=== PATIENT | female | born 1990 | race Caucasian/White ===

== ENCOUNTER 2017-07-01 16:12 | Inpatient (IN) ==
[2017-07-01] MEDS ORDERED: LIDOCAINE HCL 2 % 10 ML JELLY URO-JECT TOPICAL PRN (16:38)
[2017-07-01] MEDS ORDERED: LIDOCAINE W/ SODIUM BICARB 0.5 ML SYR SUBD PRN ×2 (16:38→20:50)
[2017-07-01] MEDS ORDERED: FAMOTIDINE 20 MG/2 ML VIAL IVP ONE ×2 (16:38→17:32)
[2017-07-01] MEDS ORDERED: Metoclopramide Inj 10 MG/2 ML VIAL IV ONE (16:38)
[2017-07-01] MEDS ORDERED: CefOXitin Inj 2 GM in Sodium Chloride 0.9% 100 ML IV ONE (16:38)
[2017-07-01] MEDS ORDERED: CITRIC ACID/SODIUM CITRATE 30 ML CUP PO ONE ×2 (16:38→17:31)
[2017-07-01] MEDS ORDERED: Lactated Ringers 1,000 ML PRIMARY IV ONE ×3 (16:38→20:29)
[2017-07-01] MEDS ORDERED: Lactated Ringers 1,000 ML PRIMARY IV SCH (16:45)
[2017-07-01] MEDS ORDERED: Oxytocin 20 Units + LR 20 UNIT/1,000 ML BAG IV SCH ×2 (16:45→21:30)
[2017-07-01 17:12] LABS: Hematocrit [HCT] 33.9 % (37.0-47.0); Hemoglobin [HGB] 11.2 g/dL (12.0-16.0); MEAN CORPUSCULAR HEMOGLOBIN 29.3 PG (27-31); MEAN CORPUSCULAR VOLUME 88.7 FL (81-99); MEAN PLATELET VOLUME 10.8 FL (7.4-12.2); RED BLOOD COUNT 3.82 10^6/uL (4.20-5.40)
[2017-07-01] MEDS ORDERED: fentaNYL Inj 100 MCG/2 ML VIAL ONE (17:13)
[2017-07-01] MEDS ORDERED: fentaNYL Inj 100 MCG/2 ML VIAL IVP ONE (17:16)
[2017-07-01] MEDS ORDERED: Metoclopramide Inj 10 MG/2 ML VIAL ONE (17:31)
--- NOTE | 2017-07-01 17:36 | OB.PROGRES ---
Interval History: The patient is a 27-year-old at 36-6/7 weeks with a history of 3 prior sections the first for nonreassuring status in the next 2 for repeat C-sections. The patient states that she has been having significant pain for 48 hours. No bleeding. Last night she just laid on the couch in significant pain. The patient did not call labor and delivery. Positive movement, no leak of fluid. The patient then presented late this afternoon for pain times greater than 48 hours. The patient's OB history is complicated by the fact that she transferred her care from [facility]. The patient states that she had an ultrasound at an urgent care clinic and she thought that she was 20 weeks gestation and this was in January 2017. The patient then had a formal ultrasound here at [facility] 03/08/2017 and the ultrasound showed that she had an ENOC of 07/23/2017. There is even mention of EFW to be the 2nd percentile or less with the dates that were given and so therefore the SENIOR AIR DIRECTOR that was following this patient changed her due date 2017. The patient was breast-feeding and did not have regular menses. The patient's last section was February 2016. The patient states that none of her sections were complicated. The patient also would like a tubal ligation. The patient states that she would like no more children. One of her children in MVA and another child is not under her care. Past medical history-history of 3 C-sections but otherwise no asthma, no diabetes, no hypertension. The patient does have a history of depression as a teenager but did not have depression according to the patient. Past surgical history 3. Allergies to Prozac Tobacco-quarter pack per day according to the patient's mom. The patient was on the phone when I asked her this. No alcohol during and no drugs during . Objective - Cervical Exam Cervical Exam: 2-3/-1 cephalic [place]: Irregular contractions Heart Rate Interpretation Category: Category I - Labs CBC and BMP: 07/01/17 16:49 - Vital Signs Last Taken Vital Signs: Vital Signs - Last Taken Temperature 98.9 F 07/01/17 16:16 Respiratory Rate 20 07/01/17 16:16 Blood Pressure 113/78 07/01/17 16:16 Pulse Ox 96 07/01/17 16:16 - Additional Details Additional Details: Lungs clear to auscultation Heart regular rate and rhythm Abdomen is gravid, soft, positive tender right and left lower quadrant without guarding or rebound. By Dameon's, baby is in the cephalic presentation. Reflexes 2+ bilaterally patellar tendon Trace edema bilaterally lower extremity, if that. No Homans. Assessment and Plan - Assessment / Plan Additional Assessment/Plan Details: Assessment: IUP 36-6/7 weeks by an ultrasound 03/08/2017. The patient states that she had an ultrasound in January 2017 that put her at 20 weeks at that time. Dates are sent by Dr. Nam with the ENOC of 07/23/2017. The patient was scheduled for repeat at 39-1/2 weeks gestation on . The patient also has satisfied parity and desires no more children and would like a bilateral tubal ligation. Group B strep negative. The patient presented today with abdominal and pelvic pain for 2 days that has been intermittent but last night it was constant. The patient's cervix is 2-3 cm dilated. The patient's cervix has not been checked this but the patient states that historically her cervix did not dilate. The baby is in the cephalic presentation. The placenta is anterior. The above information, I am saying that the patient is in labor at 36-6/ 7 weeks with a history of 3 C-sections and a repeat section will be completed today. Patient expressed understanding. Plan: The patient and I spoke, along with her mother, about the risk, benefits, alternatives and indication of a repeat section. We discussed the risk of infection, bleeding, pain, postoperative hemorrhage, blood transfusion with associated risks, the risk of a placenta accreta since the patient's placenta is anterior and the patient has had 3 sections. If this were to occur, the patient may need an urgent section for continued hemorrhage. A blood transfusion consent form has been signed. The risk of damage to bowel, bladder, nerve, vessel, nicking the baby, blood clots to the legs or lungs, serious infection requiring transferring the patient for further care and surgeries and the low possibility of maternal secondary to infection or hemorrhage or damage to bowel or any other reason. We also discussed a possible scenario where the baby would be pre-sure and have pulmonary issues or other issues necessitating transfer of the baby to intensive care unit in [place], [place]. The patient would stay here until she was healed and then may go to [place] to be with her baby. The baby would be transferred separately by the NICU transport team. The patient expressed understanding with this. The consent forms have been signed by her primary SENIOR AIR DIRECTOR-Dr. Nam beforehand. The consent forms for the section and a section as well as the blood transfusion consent form. I initialed the consent forms that were signed previously. I asked the patient and her mother if there are any questions. The patient stated that currently she did not have any. The operating crew as well as anesthesia is involved with an orthopedic case currently and we will do the repeat section when the operating room crew is available. The patient was alerted to this fact. Patient expressed understanding.
--- NOTE | 2017-07-01 18:27 | OB.OP.NOTE ---
Operative Report Surgeon: Solo Electrical Tester: Cas Ruvalcaba MD Anesthesia Type: Regional (Spinal with Duramorph) Anesthesia Provider: Brandon Davidson CRNA Surgery Date: 07/01/17 Preoperative Diagnosis: IUP 36-6/7 weeks, history of 3 sections, anterior placenta with no ultrasound evidence of placenta accreta, patient with satisfied parity and desires tubal ligation. Patient with intermittent contractions and labor with cervix 2-3/60/-1 cephalic. Patient desires Pfannenstiel scar to be excised Postoperative Diagnosis: Same. Right paratubal cyst Procedure: Repeat section. Bilateral tubal ligation using Filshie clips. Removal of Pfannenstiel scar. Excision of right paratubal cyst Estimated Blood Loss (mL): 600 Fluids: 1200 mL in operating room of LR. 3000 mL preoperatively and then during the surgery. Urine was clear yellow about 100 to 125 cc- patient voided right before surgery or going back to the operating room Complications: None apparent Findings at Surgery: Male infant with Apgars of 8 and 9 with weight 5 lbs. 13 oz. ABG showed a pH is 7.382, PCO2 34, HCO3 20.2, base excess of -5 Ovaries appeared normal bilaterally. Filshie clips applied bilaterally to fallopian tubes about 3 cm from cornua Right paratubal cyst was excised by tying the cyst off with 3-0 Vicryl suture and then excising the cyst. The placenta, abdominal scar and right paratubal cyst were sent to pathology Indications for the Procedure: Please see my H&P The patient is a 27-year-old at 3 6-6/7 weeks by an ultrasound on 03/08 that gave an ENOC of 07/23/2017. Heart to this, the patient was in [place] and states that she had an ultrasound in January 2017 which showed her to be 20 weeks at that time. The patient presented with 48 hours of abdominal and pelvic pain and her cervix was 2-3 cm/60/-1 cephalic. The patient states that her cervix has not been checked this but historically her cervix did not dilate with her last 2 pregnancies. Secondary to the anterior placenta, and a delay secondary to the operating room team being involved with an orthopedic case, an abdominal ultrasound was completed to inspect the placenta prior to the surgery. The ultrasound did not show specific evidence of a placenta accreta or increta or percreta. Of course , this does not guarantee that there is not a placenta accreta it is good that the ultrasound did not show this. With the patient being 2-3 cm dilated and having pain for the past 48 hours, I am making a diagnosis of labor. The patient and I discussed the risk, benefits, alternatives and indication of a repeat section and tubal ligation. Consent forms were signed previously. I did sign the consent forms also. We'll proceed to the repeat section and tubal ligation Description of Procedure: The patient was brought to the operating room after the risks, benefits, alternatives and indication of the repeat section and tubal ligation were discussed with the patient. Patient expressed understanding. The patient underwent spinal anesthesia with Duramorph and uncomplicated fashion. The patient was prepped and a Louis catheter was placed. The patient was prepped and draped sterilely. A timeout was completed and the patient and procedures were identified. A skin incision was made over the old Pfannenstiel skin incision. The old Pfannenstiel scar was excised. The subcutaneous tissue was then incised to the fascia using the Bovie. The fascia was nicked in the midline. The actual incision was extended elevating the fascia off of the rectus muscles using the Yankauer suction as a retractor. Coy clamps were placed on the fascia superiorly on either side of the midline and then the fascia was dissected off the rectus muscles both bluntly and with the Bovie and with a knife blade. Doreen clamps were then placed on the fascia inferiorly on either side of the midline and then the fascia was dissected off the rectus muscles both bluntly and with the Bovie. There was a small opening in the peritoneum and I was able to place my digit in and then gently used the Bovie to open up the peritoneal incision keeping in mind where the bladder and bowel were. I was unable to stretch the peritoneum and make a larger opening. Her were some adhesions between the anterior abdominal wall and the uterine fundus. These were taken down. There are also some bladder adhesions and a bladder flap was created. The Antonio retractor was then placed. A low transverse uterine incision was then made and I worked my way down to the membranes and the membranes were ruptured and was clear fluid. The uterine incision was then stretched. I then placed my hand intrauterine and delivered the baby's head. The mouth and nose were bulb suctioned. There was a nuchal cord 1 which was reduced. The was then delivered through the uterine incision. Delayed cord clamping was allowed for for greater than 30 seconds. The cord was then clamped and cut and the baby was handed off to the waiting nurses and senior shipping clerk. A section of cord was obtained for cord gases. Cord blood was then obtained. The placenta was then extracted by applying tension to the umbilical cord and then trailing membranes were gently removed using a ring forcep. A lap sponge was then placed around the fundus of the uterus and the uterus was cleared of any clot and debris 3 different times. There was no remaining placenta. There was good hemostasis. A couple areas on the right side of the incision were bleeding and a ring forcep was placed over this. Starting on the left side of the uterine incision 0 Vicryl suture in a running locking stitch was used to close the uterine incision. A second imbricating stitch was used. One [id number] suture in the center of the uterine incision was placed to allow for excellent hemostasis. Attention was then turned to the fallopian tubes and a Filshie clip was placed on the right fallopian tube about 3 cm from the cornea and the same was done on the left fallopian tube. There was good hemostasis. There was a paratubal cyst on the distal right fallopian tube and I placed a tie around the cyst and then excise the cyst. There was excellent hemostasis. Both ovaries were examined and appeared normal. Posterior to the uterus was irrigated and suctioned. The uterus was then placed back into the abdomen. Care was taken to place the ovaries and fallopian tubes back into the abdomen without torsion and the area of the paratubal cyst excision was hemostatic and the suture tie was intact. No bleeding. The right and left gutter was irrigated and suctioned. The uterine incision was examined again and there was good hemostasis. The ovaries and tubes were examined again and there was good hemostasis. Filshie clips were intact. There were some omental adhesions superiorly and these were taken down and then the peritoneum was closed using 3-0 Vicryl suture in a running fashion. The fascia was then irrigated and there was good hemostasis. Looped 0 PDS suture was then used and I started on the left angle of the fascia on the patient's left side and closed the fascia in a running fashion and then tied it on the right side in the usual fashion. The subcutaneous tissue was then irrigated and a few areas were bovied and then a layer of 3-0 Vicryl suture was used to close the subcutaneous tissue. The skin was then closed with 3-0 Stratafix suture in a subcuticular fashion. Starting in the midline and working out to the right and left side bilaterally. A few areas of the skin were open I used 4-0 Monocryl suture-interrupted sutures 3 just to close small areas of the skin. Steri-Strips were then used to reapproximate the skin even more. Silverlon dressing and then ABD pad and paper tape. My gloves were changed and then I expressed the uterus of any clot and debris and about 30 or 40 mL of dark blood with some clot was obtained. No active bleeding. The patient was then brought to the PACU in stable condition. The patient will be observed in the PACU and then brought to her room. The patient and I discussed that everything appeared to go well but we would still observe for bleeding and for infection. The patient expressed understanding. The male weighed 5 lbs. 13 oz. and had Apgars of 8 and 9. ABG showed a pH of 7.382, PCO2 of 34, HCO3 of 20, base excess of -5. Plan: The patient and baby would recover in their room
--- NOTE | 2017-07-01 18:42 | OB.PROGRES ---
Objective - Labs CBC and BMP: 07/01/17 16:49 - Vital Signs Last Taken Vital Signs: Vital Signs - Last Taken Temperature 98.9 F 07/01/17 17:20 Respiratory Rate 20 07/01/17 17:20 Blood Pressure 113/78 07/01/17 17:20 Pulse Ox 96 07/01/17 17:20 Assessment and Plan - Assessment / Plan Additional Assessment/Plan Details: Although I do not have a formal report, the chief client officer stated that it did not appear as though there was a placenta accreta with the anterior placenta. Color Doppler was used. I informed the patient that this did not 100% determine that there was not a placenta accreta but it was good that there did not appear to be a placenta accreta or more. We will proceed with the repeat section.
[2017-07-01] MEDS ORDERED: MORPHINE SULFATE/PF 10 MG/10 ML AMPULE ONE (18:44)
[2017-07-01] MEDS ORDERED: ePHEDrine Inj 50 MG/ML AMP ONE (19:20)
[2017-07-01] MEDS ORDERED: ONDANSETRON 4 MG/2 ML VIAL ONE (19:31)
--- NOTE | 2017-07-01 20:06 | DI ---
EXAM: US Uterus, Limited CLINICAL HISTORY: X 3 w/ Ant placenta; r/o accreta TECHNIQUE: Real-time ultrasound of the maternal uterus (limited) with image documentation. COMPARISON: 03/08/17 FINDINGS: Fetus: Single live intrauterine in vertex presentation. Heart rate: hear rate measures 144 beats per minute. Placenta: Anterior placenta. No obvious uterine wall invasion. IMPRESSION: 1. Single live intrauterine in vertex presentation. 2. Anterior placenta. No obvious uterine wall invasion.
[2017-07-01] MEDS ORDERED: KETOROLAC 30 MG/1 ML VIAL ONE (20:10)
[2017-07-01] MEDS ORDERED: OXYTOCIN 10 UNIT/1 ML ONE (20:29)
[2017-07-01] MEDS ORDERED: Nalbuphine Inj 20 MG/ML Ampule ONE ×2 (20:35→21:09)
--- NOTE | 2017-07-01 20:49 | CRNA.PROGR ---
Anesthesia Time - - Start date: 07/01/17 End date: 07/01/17 - Procedure/Recovery Time Anesthesia : Time In: 19:11 Anesthesia : Time Out: 20:53 Anesthesia : Total Time: 102 - Total Anesthesia Time Total Anesthesia Time (minutes): 102 - Other Weight: 76.022 kg Height: 5 ft 4 in Body Mass Index (BMI): 28.8 Physical Status: P2 Anesthesia Type: Spinal Block Obstetrics: C/S anesthesia only
[2017-07-01] MEDS ORDERED: Prochlorperazine Edisylate Inj 10mg/2ml vial IVP PRN (20:50)
[2017-07-01] MEDS ORDERED: HYDROmorphone 2 MG/1 ML IVP PRN (20:50)
--- NOTE | 2017-07-01 20:50 | CRNA.PROGR ---
Anesthesia Recovery Phase I - Post Anesthesia Evaluation Patient's Condition on Arrival in Phase I: Stable Patient's Condition on Arrival in Phase II: Stable Pain Level: 0
[2017-07-01] MEDS ORDERED: Nalbuphine Inj 20 MG/ML Ampule IVP PRN ×2 (21:01→21:30)
[2017-07-01] MEDS ORDERED: Naloxone Inj 0.01 MG, Sodium Chloride 0.9% vial 1 ML IVP PRN ×2 (21:30)
[2017-07-01] MEDS ORDERED: D5-LR 1,000 ML PRIMARY IV SCH (21:30)
[2017-07-01] MEDS ORDERED: DIPH,PERTUSS,TET(ADACEL) VAC/PF 0.5 ML (Tdap) IM ONE (21:30)
[2017-07-01] MEDS ORDERED: FAMOTIDINE 20 MG/2 ML VIAL IVP PRN (21:30)
[2017-07-01] MEDS ORDERED: ONDANSETRON 4 MG/2 ML VIAL IVP PRN (21:30)
[2017-07-01] MEDS ORDERED: CALCIUM CARBONATE 500 MG (TUMS) CHEWABLE TABLET PO PRN (21:30)
[2017-07-01] MEDS ORDERED: diphenhydrAMINE 25 MG CAPSULE PO PRN (21:30)
[2017-07-01] MEDS ORDERED: LANOLIN HPA 40 GM TUBE TOPICAL PRN (21:30)
[2017-07-01] MEDS ORDERED: diphenhydrAMINE 50 MG/1 ML VIAL IV PRN (21:30)
[2017-07-01] MEDS: KETOROLAC 15 MG/1 ML VIAL IVP SCH (22:00)
[2017-07-01] MEDS: oxyCODONE-ACETAMINOPHEN 5-325 TAB PO PRN (23:14)
--- NOTE | 2017-07-01 23:38 | CRNA.PROCE ---
Central Neuraxis Block Placemt - - Type of Block: Subarachnoid Reason for Block: Surgical Moniters Used During Block: EKG, SPO2, NIBP Positioning: Sitting Skin Prep Used: ChloroPrep Draped: No Skin Infiltration - Enter Amount Used in Comment Field: 1% Xylocaine (mL): Yes ( skin wheal) Spinal Needle Used: 25 Joce 80 mm Local Anesthetic - Enter Amount Used in Comment Field: 0.75 % Bupivacaine with Dextrose (ml): Yes (2ml) Additive Used - Enter Amount Used in Comment Field: Preservative Free Morphine ( mg): Yes (.3mg) Bioclusive Dressing Applied: No Anesthesia Time - Other Weight: 76.022 kg Height: 5 ft 4 in Body Mass Index (BMI): 28.8
[2017-07-02] MEDS: KETOROLAC 15 MG/1 ML VIAL IVP SCH ×4 (03:35→21:05)
[2017-07-02] MEDS: oxyCODONE-ACETAMINOPHEN 5-325 TAB PO PRN ×4 (03:40→19:10)
[2017-07-02 05:13] LABS: Hematocrit [HCT] 29.6 % (37.0-47.0); Hemoglobin [HGB] 9.7 g/dL (12.0-16.0); MEAN CORPUSCULAR HEMOGLOBIN 29.7 PG (27-31); MEAN CORPUSCULAR HGB CONC 32.8 g/dL (33-37); MEAN CORPUSCULAR VOLUME 90.5 FL (81-99); MEAN PLATELET VOLUME 10.8 FL (7.4-12.2); RED BLOOD COUNT 3.27 10^6/uL (4.20-5.40)
[2017-07-02] MEDS: Prenatal Multivitamin Tab 1 TAB TAB PO SCH (08:51)
[2017-07-02] MEDS: Senna/Docusate Tab 1 TAB TAB PO SCH ×2 (08:51→21:05)
--- NOTE | 2017-07-02 13:53 | OB.PROGRES ---
Subjective Post Op Day: 1 Pain Management: IV Toradol Louis Catheter: Yes Flatus: Yes Diet: Regular [place] Feeding Method: / Bottle Ambulating: No Concerns / Additional Information: The patient has not really walked around the room. However, the patient would like her Louis catheter removed and the nurse will do so after the patient is up. The patient states that she is passing flatus. She is mainly breast-feeding but supplementing with bottle. Patient states that she is feeling okay. She tolerated the regular diet okay. Objective - General General Appearance: POSITIVE: No Acute Distress, Cooperative - Cardiovacular Cardiovascular Exam: POSITIVE: RRR Extremities: Negative Riccardo's - Bilaterally - Respiratory Respiratory Exam: POSITIVE: Clear to Auscultation - Bilaterally - Abdomen Bowel Sounds: Present Abdominal Wound Assessment: Silverlone Dressing (With ABD pad) - Fundus/Lochia/Perineum Uterus Consistency: Firm Assesstment / Plan Assessment / Plan: Assessment: Post operative day #1 status post repeat section, bilateral tubal ligation using Filshie clips since the patient is only 27 years old, scar revision, and lysis of adhesions who has a postop H&H of 9.7 and 29.6. Patient's pulse is in the 80s. Patient's blood pressure is 100 over 60s and her blood pressure was similar during her OB visits with Dr. Nam. The patient is doing well overall. Plan: Louis catheter will be discontinued. Ambulate in room and at least one time in the carcamo today. Ambulate at least 4 times in the carcamo tomorrow as well as the room Check H&H tomorrow morning since this morning's was only 8-10 hours postop. Anticipate discharge from hospital on postoperative #3 since the patient's surgery was last evening. Patient expressed understanding. Continue to observe vital signs
--- NOTE | 2017-07-02 14:22 | CRNA.PROGR ---
Anesthesia Note - Progress Notes Anesthesia Progress Note: Post OP Anesthesia Note Pt is lying in bed nursing her alert and oriented. She denies any residual problems from the SAB, and states that it has completely resolved. She has not been up ambulating yet but states thes nurses are going to be getting her up soon and removing the catheter. She is tolerating a regular diet. Current VSS. Vital Signs - Last Taken Temperature 98.4 F 07/02/17 09:00 Pulse Rate 79 07/02/17 09:00 Respiratory Rate 20 07/02/17 09:00 Blood Pressure 105/76 07/02/17 09:00 Pulse Ox 98 07/02/17 09:00
--- NOTE | 2017-07-02 19:49 | OB.PROGRES ---
Subjective Post Op Day: 1 Pain Management: IV Toradol Louis Catheter: No Flatus: Yes Diet: Regular [place] Feeding Method: / Bottle Ambulating: Yes Concerns / Additional Information: Louis catheter is out. When she ambulates, she has some pain on her right and left side. Objective - General General Appearance: POSITIVE: No Acute Distress, Cooperative - Abdomen Abdominal Wound Assessment: Silverlone Dressing (Abdomen is soft without guarding or rebound. Appropriately tender.) Assesstment / Plan Assessment / Plan: Assessment: Postoperative day #1 status post repeat section, scar revision, bilateral tubal ligation using Filshie clips, and lysis of adhesions. The patient does have some pain on her right and left side. The patient has been taking oxycodone with Tylenol or Percocet every 4 hours. The patient is not in acute distress. Plan: The patient and I discussed the fascial incision and closure of the fascia with a loop of suture on the left side and then on the right side a knot. The patient's pain could be secondary to this. Additionally, the patient has had a tubal ligation and the Filshie clips could be causing some discomfort. The patient's vital signs are normal with pulse in the 70s and 80s. The patient's abdomen is soft without guarding or rebound. I will discontinue the patient's oxycodone/Tylenol 5/325 and prescribed oxycodone with Tylenol 7.5/325 one to 2 by mouth every 4-6 hours when necessary pain. The nurse stated that she would try to give one 7.5 milligram oxycodone tablet every 4 hours to determine if this helps. I will reassess the patient tomorrow or sooner as needed.
[2017-07-02] MEDS: oxyCODONE/APAP 7.5/325 Tab 1 TAB TAB PO PRN (22:52)
[2017-07-03] MEDS: oxyCODONE/APAP 7.5/325 Tab 1 TAB TAB PO PRN ×4 (03:30→19:17)
[2017-07-03 05:19] LABS: BASOPHILS # (AUTO) 0.02 10*3/UL; BASOPHILS % (AUTO) 0.2 % (0-1); EOSINOPHILS # (AUTO) 0.25 10*3/UL; EOSINOPHILS % (AUTO) 2.6 % (0-8); Hematocrit [HCT] 29.7 % (37.0-47.0); Hemoglobin [HGB] 9.6 g/dL (12.0-16.0); LYMPHOCYTES # (AUTO) 2.77 10*3/uL; MEAN CORPUSCULAR HEMOGLOBIN 29.3 PG (27-31); MEAN CORPUSCULAR HGB CONC 32.3 g/dL (33-37); MEAN CORPUSCULAR VOLUME 90.5 FL (81-99); MONOCYTES % (AUTO) 8.4 % (5-15); NEUTROPHILS # (AUTO) 5.65 10*3/UL; NEUTROPHILS % (AUTO) 59.5 % (50-80); PLATELET MORPHOLOGY COMMENT NORMAL MORPHOLOGY (NORM); RBC MORPHOLOGY COMMENT NORMAL MORPHOLOGY (NORM); RED BLOOD COUNT 3.28 10^6/uL (4.20-5.40); WBC MORPHOLOGY COMMENT NORMAL MORPHOLOGY (NORM)
[2017-07-03] MEDS: IBUPROFEN 800 MG TABLET PO PRN ×2 (07:24→15:26)
[2017-07-03] MEDS: Senna/Docusate Tab 1 TAB TAB PO SCH ×2 (08:41→22:05)
[2017-07-03] MEDS: Prenatal Multivitamin Tab 1 TAB TAB PO SCH (08:41)
--- NOTE | 2017-07-03 11:20 | OB.PROGRES ---
Subjective Post Op Day: 2 Pain Management: PO Louis Catheter: No Flatus: Yes Diet: Regular Feeding Method: / Bottle Ambulating: Yes Concerns / Additional Information: The patient states that her pain is improved today. The patient has been ambulating in her room. She is feeling better. Objective - General General Appearance: POSITIVE: No Acute Distress, Cooperative - Cardiovacular Cardiovascular Exam: POSITIVE: RRR Extremities: Negative Riccardo's - Bilaterally - Respiratory Respiratory Exam: POSITIVE: Rhonci (Right lower lung olivarez and left lung field Somewhat cleared with increased breathing.), Coarse Breath Sounds - Abdomen Bowel Sounds: Present (All 4 quadrants) Abdominal Wound Assessment: Silverlone Dressing Assesstment / Plan Assessment / Plan: Assessment: Postoperative day #2 status post repeat section, bilateral tubal ligation using Filshie clips, scar revision, and lysis of adhesions who is doing well. Post op H&H today is essentially the same as yesterday morning. The patient does have some rhonchi and is a smoker. Plan: Continue treatment plan Breathing treatment Ambulate I changed oxycodone every 6 hours when necessary pain Continue ibuprofen 3 times a day
[2017-07-03] MEDS ORDERED: ALBUTEROL SULFATE 2.5 MG/3 ML NEB PRN (11:22)
--- NOTE | 2017-07-03 11:41 | DCSUMMARY ---
Hospitalization Summary Admit Date: 07/01/17 Discharge Date: 07/04/17 Primary Diagnosis:: IUP 36-6/7 weeks with previous 3 Secondary Diagnosis:: labor with previous section Satisfied parity with desire for tubal ligation Patient desires scar revision Primary Surgery and Date: 07/01/2017. Repeat section. Bilateral tubal ligation using Filshie clips. Scar revision. Lysis of adhesions. Excision of right paratubal cyst Delivery Type: Hospital Course: The patient was admitted 07/01/2017 with labor with the patient's cervix being 2-3 cm/60/-1 and cephalic The patient underwent a repeat section, bilateral tubal ligation using Filshie clips, scar revision, lysis of adhesion and excision of a right paratubal cyst The patient did well postoperatively. Her postop H&H was essentially the same on postop day #1 and postop day #2. The patient was having some pain and I increased the patient's oxycodone from 5 mg to 7.5 mg/325 on the evening of postoperative day #1. On postoperative day #2 the patient was doing well. However, since the patient did not deliver to later in the evening, the patient will be discharged on postoperative day #3 On postoperative day #3, patient was doing well. Patient was discharged home. / Postop Complications: None apparent [place] Complications: None apparent Exam - Vitals Vital Signs: Vital Signs Temperature 97.8 F Temperature Source Oral Pulse Rate [Pulse Oximeter] 71 Pulse Rate 85 Respiratory Rate 15 Blood Pressure [Right Arm] 103/47 Blood Pressure 94/54 Pulse Ox 94 Oxygen Flow Rate 2 L by NC Oxygen Delivery Method Room Air Height 5 ft 4 in Weight 167 lb 9.6 oz
[2017-07-03] MEDS ORDERED: Lactated Ringers 2,000 ML PRIMARY IV ONE (16:09)
[2017-07-04] MEDS: oxyCODONE/APAP 7.5/325 Tab 1 TAB TAB PO PRN ×2 (03:51→11:00)
[2017-07-04] MEDS: IBUPROFEN 800 MG TABLET PO PRN (03:51)
[2017-07-04] MEDS: Prenatal Multivitamin Tab 1 TAB TAB PO SCH (08:44)
[2017-07-04] MEDS: Senna/Docusate Tab 1 TAB TAB PO SCH (08:44)
[2017-07-04 08:51] VITALS: BP 109/55; RESP 16; TEMP 97.8; O2SAT 98
--- NOTE | 2017-07-04 09:42 | OB.PROGRES ---
Subjective Post Op Day: 3 Pain Management: PO Louis Catheter: No Flatus: Yes Diet: Regular Feeding Method: / Bottle Ambulating: Yes Concerns / Additional Information: The patient states that she is feeling well except for tired. The patient has been taking her oxycodone every 6 hours. The patient states that her breathing is better. She received a couple breathing treatments. The patient is a smoker. The patient desires to go home. She has support at home. Objective - General General Appearance: POSITIVE: No Acute Distress, Cooperative - Cardiovacular Cardiovascular Exam: POSITIVE: RRR Extremities: Negative Riccardo's - Bilaterally - Respiratory Respiratory Exam: POSITIVE: Clear to Auscultation - Bilaterally, Rhonci (Few rhonchi initially but cleared with deep respiration) - Abdomen Abdominal Wound Assessment: Silverlone Dressing (Intact The patient had her initial dressing removed yesterday. Steri-Strips were dry and new Silverlon dressing was placed) - Fundus/Lochia/Perineum Other Exam Details: Abdomen is soft without guarding or rebound. Silverlon dressing in place Assesstment / Plan Assessment / Plan: Assessment: Postoperative day #3 status post repeat section, bilateral tubal ligation using Filshie clips since patient is only 27 years old, right paratubal cyst excision, lysis of adhesions, and scar revision. The patient's vital signs are normal. Patient feels well. Patient desires to go home. Exam is normal for postoperative day #3. Plan: Discharge home today Patient should follow-up Tuesday afternoon on 07/06/2017 with her primary OB/ [employer]-Dr. Nam for an incision check Usual postoperative instructions. Please see discharge instructions. Postoperative meds were previously prescribed and her mother picked them up.
== END 2017-07-04 14:00 | disposition home or self-care (01) | DRG 766 ==
LOC: OBOP 16:12 → OBIP 17:07
PROVIDERS: ADMIT Obstetrics & Gynecology; ATTEND Obstetrics & Gynecology